=== PATIENT | female | born 1950 | race Caucasian/White ===

== ENCOUNTER → 2021-06-25 14:22 | Outpatient (CLI) | payer MEDICARE, OTHER, SELFPAY ==
[2021-06-25 18:01] LABS: COVID19 -Nasal RAPID Negative (Negative)
== END ==
PROVIDERS: PCP Family Medicine Geriatric Medicine; Visit Provider Physician Assistant
DX: Z01.812 Encounter for preprocedural laboratory examination (principal); Z20.822 Contact with and (suspected) exposure to COVID-19
CPT/HCPCS: 87635; C9803

== ENCOUNTER 2021-06-27 10:15 | Day surgery (SDC) | payer MEDICARE, OTHER, SELFPAY ==
--- NOTE | 2021-06-27 08:19 | P.OP_ITS ---
Operative Date/Time/Diagnoses Date of procedure: 06/27/21 Time of procedure: 11:45 Procedure & Clinicians Procedure: Preoperative diagnoses: 1. Right advanced significant nuclear sclerotic and cortical cataract. 2. Desire for a multifocal lens to reduce dependency on glasses. Postoperative diagnoses: 1. Cataract removed by phacoemulsification with placement of posterior chamber intraocular lens. Procedure: Phacoemulsification with posterior chamber intraocular lens implant. Capsular dye used to improve visibility and safety. Surgeon: Sunitha Sanon MD Complications: None Specimen: None Implant: [id number]+23.0 Blood loss: None Anesthesia: Retrobulbar with monitored standby Description of procedure: Patient presents with a complaint of decreased vision due to cataract which is affecting activities of daily living with problems with night driving. The patient wants surgery to improve vision. She has chosen an elective multifocal lens. The patient understands the extra risk of surgery during the COVID-19 epidemic and wishes to proceed. They have tested negative for active virus within 72 hours of the procedure. The patient was taken to the operating room and given IV sedation. A retrobulbar block consisting of 6 cc of 2% xylocaine without epinephrine mixed half and half with 0.5% Marcaine with 1 cc of hyaluronidase added is placed between the medial and lateral 1/3 of the inferior orbital rim. The eye is manually massaged for 30 sec, prepped using Betadine solution, and draped in the usual sterile fashion. Temporal approach was made, a 1 mm side-port incision was made 90? from the proposed clear corneal incision position. Phenylephrine 1.5% mixed with 1% xylocaine 0.2 cc was placed into the anterior chamber .Endocoat followed by Healon was then placed. A 2.6 mm clear incision with a 2.6 mm blade was placed. An air bubble was placed followed by vision blue dye. The extra dye and bubble was then removed with BSS on a syringe. A 360 degree capsulorrhexis style capsulotomy was then performed with a cystitome needle on a Healon aided by the capsular dye due to dense lens and cortical changes. Hydrodelineation and hydrodissection were performed. The phacoemulsification unit is introduced, and sculpting notice used to groove the central lens. It is then removed in chopping mode. Epi nucleus is removed with epinuclear mode and irrigation aspiration was used to remove the peripheral cortex. The posterior capsule is polished. The intraocular lens is selected, inspected, power confirmed, and placed in the posterior chamber. It is a Synergy multifocal intra-ocular lens. was carefully centered in the visual center. The wound was stromally hydrated and tested for leaks, there was none and it was left sutureless. Intracameral moxifloxacin 0.1 cc was placed into the anterior chamber. Kenalog 0.2 cc was placed in the superior subconjunctival space. A drop of antibiotic and was placed and the eye was patched and shielded. The patient was stable and returned to the recovery room in excellent condition. Dictated by: Sunitha Sanon MD Copy to: [facility] Same procedure as scheduled: Yes
[2021-06-27] MEDS: PROPARACAINE 0.5% OPHTH SOL 2 DROPS EYE-OP (10:36)
[2021-06-27] MEDS: CATARACT EYE COMPOUND (10 DROPS/SYRINGE) 3 DROPS EYE-OP (10:37)
[2021-06-27 10:42] VITALS: BP 159/85; PULSE 80; RESP 16; TEMP 36.3; O2SAT 99; BMI 25.0
--- NOTE | 2021-06-27 11:15 | SUR.OPER ---
Supine on eye stretcher, head on extension cradle secured with tape. Arms tucked at sides with blanket. Pillow under knees.
--- NOTE | 2021-06-27 11:41 | PM.PREOP ---
Pre-operative Note COVID-19 COVID-19 status: Negative Interval Note History & Physical reviewed/Exam performed by Physician: Yes Changes to H&P: No
[2021-06-27] MEDS: HYALURONATE SODIUM 30 MG-10 MG/ML SYRINGES 1 BOX INTRAOCULA (12:05)
[2021-06-27] MEDS: MOXIFLOXACIN INJ 4 MG/0.8 ML VIAL 0.5 MG EYE-OP (12:05)
[2021-06-27] MEDS: TRIAMCINOLONE 50 MG/5 ML VIAL INJ (12:06)
[2021-06-27] MEDS: PHENYLEPHRINE/LIDOCAINE VIAL (OR) 0.2 ML EYE-OP (12:06)
[2021-06-27] MEDS: ERYTHROMYCIN OPHTH 1 GM OINT 1 APPLIC EYE-RIGHT (12:07)
[2021-06-27] MEDS: TRYPAN BLUE 0.5 ML SYRINGE INJ (12:07)
[2021-06-27] MEDS: BALANCED SALT IRRIG SOLN NO.2 500 ML, EPINEPHrine 1 MG IRR (12:07)
[2021-06-27] MEDS: LIDOCAINE 2% 4 ML, BUPIVACAINE 0.5% (PF) 4 ML, HYALURONIDASE 150 UNIT INJ (12:08)
[2021-06-27 12:50] VITALS: BP 147/81; PULSE 67; RESP 16; TEMP 36.7; O2SAT 99
== END 2021-06-27 12:50 | disposition home or self-care (01) ==
PROVIDERS: Referring Provider Ophthalmology; Visit Provider Ophthalmology
PROC: (CPT 66984; principal; 2021-06-27 11:45)
DX: H25.811 Combined forms of age-related cataract, right eye (principal)
CPT/HCPCS: 66984; J0171; J3301; J3470; V2788

== ENCOUNTER → 2021-07-09 13:10 | Outpatient (CLI) | payer MEDICARE, OTHER, SELFPAY ==
[2021-07-09 15:26] LABS: COVID19 -Nasal RAPID Negative (Negative)
== END ==
PROVIDERS: Referring Provider Ophthalmology; Visit Provider Ophthalmology
DX: Z20.822 Contact with and (suspected) exposure to COVID-19 (principal)
CPT/HCPCS: 87635; C9803

== ENCOUNTER 2021-07-11 10:16 | Day surgery (SDC) | payer MEDICARE, OTHER, SELFPAY ==
--- NOTE | 2021-07-09 19:57 | PM.PREOP ---
Pre-operative Note COVID-19 COVID-19 status: Negative Criteria for continued procedure: Expected advancement of disease process, Possibility delay results in more complex future surgery or treatment, Increased loss of function and Non-surgical alternatives not available or appropriate per current SOC Interval Note History & Physical reviewed/Exam performed by Physician: Yes Changes to H&P: No
--- NOTE | 2021-07-11 08:17 | P.OP_ITS ---
Operative Date/Time/Diagnoses Date of procedure: 07/11/21 Time of procedure: 11:45 Procedure & Clinicians Procedure: Preoperative diagnoses: 1. Left advanced nuclear sclerotic and cortical cataract. Desires a multifocal implant to reduce dependency on glasses at all distances. Postoperative diagnoses: 1. Left Complex surgery with use of capsular dye, 2. Placement of a posterior chamber intraocular lens implant. Surgeon: Sunitha Sanon MD Complications: none Specimen: None Implant: [id number]+22.5 synergy multifocal lens Blood loss: None Anesthesia: Retrobulbar with monitored standby. Description of procedure: Dictated by: Sunitha Sanon MD Post operative diagnoses: 1. Left cataract removed with use of phacoemulsification. 2. Placement of a multifocal posterior chamber intraocular lens. Procedure: Phacoemulsification with posterior chamber intraocular lens implant Surgeon: Sunitha Sanon MD Blood loss: None Anesthesia: Retrobulbar with monitored standby Description of procedure: Patient has presented with decreased vision due to c ataract which is affecting activities of daily living especially driving. She has had successful right cataract surgery with a multifocal implant and is feeling very imbalanced. She feels the left blur is to tracking from all activities of driving and reading and wishes to proceed with surgery. She has advanced cataract. The patient wants surgery to improve vision. A delay in surgery will cause her to have increased loss of function as well as increased risk of complications due to more advanced disease. She understands the extra risk of surgery during the COVID-19 epidemic and wished to proceed. The patient has tested negative for active COVID-19 virus within 72 hours of the procedure. The patient was taken to the operating room and given IV sedation. A retrobulbar block consisting of 6 cc of 2% xylocaine without epinephrine mixed half and half with 0.5% Marcaine with 1 cc of hyaluronidase added is placed between the medial and lateral 1/3 of the inferior orbital rim. The eye is manually massaged for 30 sec, prepped using Betadine solution, and draped in the usual sterile fashion. Temporal approach was made, a 1 mm side-port incision was performed 90 degrees from the planned corneal wound. Phenylephrine 1.5% mixed with 1% xylocaine 0.2 cc was placed into the anterior chamber. EndoCoat by Healon was then placed. A 2.6 mm clear incision with a 2.6 mm blade was placed. A 360 degree capsulorrhexis style capsulotomy was then performed with [facility] by the capsular dye. Hydrodelineation and hydrodissection were performed. The phacoemulsification unit is introduced, and sculpting used to groove the central lens. It is then removed in chopping mode. Epi nucleus is removed with epinuclear mode and irrigation aspiration was used to remove the peripheral cortex. The posterior capsule is polished. The multi focal intraocular lens is selected, inspected, power confirmed, and placed in the posterior chamber. The wound was stromally hydrated and tested for leaks, there was none and was left sutureless. Intracameral moxifloxacin 0.1 cc was placed into the anterior chamber. Kenalog 0.2 cc was placed in the superior metzger bconjunctival space. A drop of antibiotic and was placed and the eye was patched and shielded. The patient was stable and returned to the recovery room in excellent condition. Dictated by: Sunitha Sanon MD Copy to: [facility] Same procedure as scheduled: Yes
[2021-07-11] MEDS: CATARACT EYE COMPOUND (10 DROPS/SYRINGE) 3 DROPS EYE-OP (11:00)
[2021-07-11] MEDS: PROPARACAINE 0.5% OPHTH SOL 2 DROPS EYE-OP (11:00)
[2021-07-11 11:18] VITALS: BP 155/85; PULSE 79; RESP 18; TEMP 36.6; O2SAT 97; BMI 25.0
[2021-07-11] MEDS: LIDOCAINE 2% 4 ML, BUPIVACAINE 0.5% (PF) 4 ML, HYALURONIDASE 150 UNIT INJ (11:46)
[2021-07-11] MEDS: MOXIFLOXACIN INJ 4 MG/0.8 ML VIAL 0.5 MG EYE-OP (11:57)
[2021-07-11] MEDS: HYALURONATE SODIUM 30 MG-10 MG/ML SYRINGES 1 BOX INTRAOCULA (11:57)
[2021-07-11] MEDS: TRIAMCINOLONE 50 MG/5 ML VIAL INJ (11:58)
[2021-07-11] MEDS: BALANCED SALT IRRIG SOLN NO.2 500 ML, EPINEPHrine 1 MG IRR (11:58)
[2021-07-11] MEDS: PHENYLEPHRINE/LIDOCAINE VIAL (OR) 0.2 ML EYE-OP (11:58)
[2021-07-11] MEDS: TRYPAN BLUE 0.5 ML SYRINGE INJ (11:59)
[2021-07-11 12:24] VITALS: BP 170/89; PULSE 82; RESP 16; TEMP 36.5; O2SAT 97
== END 2021-07-11 12:45 | disposition home or self-care (01) ==
LOC: OR 10:18
PROVIDERS: Referring Provider Ophthalmology; Visit Provider Ophthalmology
PROC: (CPT 66984; principal; 2021-07-11 11:45)
DX: H25.812 Combined forms of age-related cataract, left eye (principal)
CPT/HCPCS: 66984; J0171; J2704; J3301; J3470; V2788